=== PATIENT | female | born 1950 | race Caucasian/White ===

== ENCOUNTER 2021-10-13 13:28 | Inpatient (IN) ==
[2021-10-13] MEDS ORDERED: Albuterol 2.5 MG/3 ML NEBULIZER IH PRN (16:33)
[2021-10-13] MEDS: Ipratropium/Albuterol Neb 3 ML IH SCH ×2 (19:02→21:09)
[2021-10-14] MEDS: Ipratropium/Albuterol Neb 3 ML IH SCH (03:30)
[2021-10-14] MEDS: *HR* Enoxaparin 40 MG/0.4 ML SYRINGE SQ SCH (06:05)
[2021-10-14 07:51] LABS: Eosinophils % 0.2 %; Hematocrit 31.4 % (35.3-44.9); Immature Granulocytes % 0.5 % (0-4); Lymphocytes # 1.2 K/mcL (0.6-4.6); Lymphocytes % 28.5 %; Mean Corpuscular HGB Conc 31.8 g/dL (31.6-35.5); Mean Corpuscular Hemoglobin 29.3 pg (28.0-33.3); Mean Corpuscular Volume 92.1 fL (83.0-100.0); Mean Platelet Volume 11.4 fL (9.4-12.4); Monocytes # 0.4 K/mcL (0.0-1.3); Monocytes % 9.3 %; Platelet Count 177 K/mcL (140-400); Red Blood Count 3.41 M/mcL (3.82-4.97); Red Cell Distribution Width 12.3 % (11.5-14.5); Segmented Neutrophils % 61.5 %; White Blood Count 4.3 K/mcL (4.3-11.1)
[2021-10-14 07:52] LABS: Neutrophils # 2.6 K/mcL (1.6-8.9)
[2021-10-14] MEDS ORDERED: Furosemide 20 MG TABLET PO SCH (09:00)
[2021-10-14 09:11] LABS: BUN/Creatinine Ratio 20 (6-26); Blood Urea Nitrogen 19 mg/dL (8-23); Carbon Dioxide 40 mEq/L (23-29); Chloride 97 mEq/L (98-107); Glucose 121 mg/dL (70-105); Osmolality,Calculated 294 (280-300); Potassium 3.6 mEq/L (3.5-5.1); Sodium 140 mEq/L (136-145); eGFR For African Americans > 60 (> 60); eGFR For Non-African Americans 57 (> 60)
[2021-10-14] MEDS: Aspirin Enteric Coated 81 MG Tablet PO SCH (09:48)
[2021-10-14] MEDS: dexAMETHasone 4 MG TABLET PO SCH (09:48)
[2021-10-14] MEDS: Fluticasone Propionate Nasal 50 MCG/SPRAY BOTTLE NS SCH (09:49)
[2021-10-14] MEDS: Tiotropium 10 INH DOSE IH SCH (10:42)
[2021-10-14] MEDS: Budesonide/Formoterol 160/4.5 1 PUFF INH IH SCH (21:58)
[2021-10-15] MEDS: *HR* Enoxaparin 40 MG/0.4 ML SYRINGE SQ SCH (06:35)
[2021-10-15] MEDS: dexAMETHasone 4 MG TABLET PO SCH (08:23)
[2021-10-15] MEDS: acetaZOLAMIDE 250 MG TABLET PO SCH ×3 (08:23→22:15)
[2021-10-15] MEDS: Aspirin Enteric Coated 81 MG Tablet PO SCH (08:23)
[2021-10-15] MEDS: Furosemide 20 MG TABLET PO SCH (08:24)
[2021-10-15] MEDS: Fluticasone Propionate Nasal 50 MCG/SPRAY BOTTLE NS SCH (09:10)
[2021-10-15] MEDS: Tiotropium 10 INH DOSE IH SCH (09:46)
[2021-10-15] MEDS: Budesonide/Formoterol 160/4.5 1 PUFF INH IH SCH ×2 (09:46→23:37)
[2021-10-15] MEDS: Nystatin POWDER 30 GM BOTTLE TP SCH (21:58)
[2021-10-16] MEDS: *HR* Enoxaparin 40 MG/0.4 ML SYRINGE SQ SCH (06:19)
[2021-10-16] MEDS: Furosemide 20 MG TABLET PO SCH (08:16)
[2021-10-16] MEDS: Aspirin Enteric Coated 81 MG Tablet PO SCH (08:16)
[2021-10-16] MEDS: acetaZOLAMIDE 250 MG TABLET PO SCH ×2 (08:17→19:23)
[2021-10-16] MEDS: dexAMETHasone 4 MG TABLET PO SCH (08:17)
[2021-10-16] MEDS ORDERED: Dextrose Gel 15 GM/37.5 ML TUBE PO PRN ×2 (08:52)
[2021-10-16] MEDS ORDERED: D5% in Water 1,000 ML IVC PRN (08:52)
[2021-10-16] MEDS ORDERED: *HR* Dextrose 50 % in Water (Syg) 50 ML SYRINGE IVP PRN (08:52)
[2021-10-16 09:04] LABS: Hematocrit 37.5 % (35.3-44.9); Hemoglobin 11.6 g/dL (11.5-15.4); Mean Corpuscular HGB Conc 30.9 g/dL (31.6-35.5); Mean Corpuscular Hemoglobin 28.7 pg (28.0-33.3); Mean Corpuscular Volume 92.8 fL (83.0-100.0); Mean Platelet Volume 11.4 fL (9.4-12.4); Platelet Count 238 K/mcL (140-400); Red Blood Count 4.04 M/mcL (3.82-4.97); Red Cell Distribution Width 12.1 % (11.5-14.5); White Blood Count 6.6 K/mcL (4.3-11.1)
[2021-10-16 09:17] LABS: BUN/Creatinine Ratio 23 (6-26); Blood Urea Nitrogen 20 mg/dL (8-23); Calcium 9.5 mg/dL (8.6-10.3); Carbon Dioxide 34 mEq/L (23-29); Chloride 96 mEq/L (98-107); Glucose 185 mg/dL (70-105); Osmolality,Calculated 291 (280-300); Potassium 3.7 mEq/L (3.5-5.1); Sodium 137 mEq/L (136-145); eGFR For African Americans > 60 (> 60); eGFR For Non-African Americans > 60 (> 60)
[2021-10-16] MEDS: Budesonide/Formoterol 160/4.5 1 PUFF INH IH SCH ×2 (10:11→21:37)
[2021-10-16] MEDS: Tiotropium 10 INH DOSE IH SCH (10:12)
[2021-10-16] MEDS: Fluticasone Propionate Nasal 50 MCG/SPRAY BOTTLE NS SCH (11:42)
[2021-10-16] MEDS: Nystatin POWDER 30 GM BOTTLE TP SCH ×3 (11:42→19:24)
[2021-10-16] MEDS: Insulin LISPRO 300 UNITS/3 ML VIAL SUBQ SCH ×2 (13:57→17:07)
[2021-10-17] MEDS: *HR* Enoxaparin 40 MG/0.4 ML SYRINGE SQ SCH (05:24)
[2021-10-17] MEDS: dexAMETHasone 4 MG TABLET PO SCH (08:11)
[2021-10-17] MEDS: acetaZOLAMIDE 250 MG TABLET PO SCH ×2 (08:11→19:19)
[2021-10-17] MEDS: Aspirin Enteric Coated 81 MG Tablet PO SCH (08:11)
[2021-10-17] MEDS: Fluticasone Propionate Nasal 50 MCG/SPRAY BOTTLE NS SCH (08:11)
[2021-10-17] MEDS: Nystatin POWDER 30 GM BOTTLE TP SCH ×3 (08:11→19:19)
[2021-10-17] MEDS: Furosemide 20 MG TABLET PO SCH (08:11)
[2021-10-17] MEDS: Insulin LISPRO 300 UNITS/3 ML VIAL SUBQ SCH ×3 (08:12→17:22)
[2021-10-17] MEDS ORDERED: Menthol 1 EACH LOZENGE PO PRN (08:50)
[2021-10-17] MEDS: Budesonide/Formoterol 160/4.5 1 PUFF INH IH SCH ×2 (10:25→22:43)
[2021-10-17] MEDS: Tiotropium 10 INH DOSE IH SCH (10:25)
[2021-10-18] MEDS: *HR* Enoxaparin 40 MG/0.4 ML SYRINGE SQ SCH (05:13)
[2021-10-18] MEDS: Insulin LISPRO 300 UNITS/3 ML VIAL SUBQ SCH ×3 (07:19→16:49)
[2021-10-18] MEDS: dexAMETHasone 4 MG TABLET PO SCH (09:45)
[2021-10-18] MEDS: Aspirin Enteric Coated 81 MG Tablet PO SCH (09:45)
[2021-10-18] MEDS: Furosemide 20 MG TABLET PO SCH (09:45)
[2021-10-18] MEDS: Fluticasone Propionate Nasal 50 MCG/SPRAY BOTTLE NS SCH (09:46)
[2021-10-18] MEDS: Nystatin POWDER 30 GM BOTTLE TP SCH ×3 (10:09→19:35)
[2021-10-18] MEDS: Budesonide/Formoterol 160/4.5 1 PUFF INH IH SCH ×2 (10:22→21:41)
[2021-10-18 11:47] LABS: Hematocrit 36.7 % (35.3-44.9); Hemoglobin 11.4 g/dL (11.5-15.4); Mean Corpuscular HGB Conc 31.1 g/dL (31.6-35.5); Mean Corpuscular Hemoglobin 28.8 pg (28.0-33.3); Mean Corpuscular Volume 92.7 fL (83.0-100.0); Mean Platelet Volume 11.3 fL (9.4-12.4); Platelet Count 212 K/mcL (140-400); Red Blood Count 3.96 M/mcL (3.82-4.97); Red Cell Distribution Width 12.2 % (11.5-14.5); White Blood Count 6.4 K/mcL (4.3-11.1)
[2021-10-18 11:55] LABS: VBG Chloride 98 mEq/L (98-107)
[2021-10-18 12:30] LABS: BUN/Creatinine Ratio 30 (6-26); Blood Urea Nitrogen 27 mg/dL (8-23); Calcium 9.5 mg/dL (8.6-10.3); Carbon Dioxide 32 mEq/L (23-29); Glucose 162 mg/dL (70-105); eGFR For African Americans > 60 (> 60); eGFR For Non-African Americans > 60 (> 60)
[2021-10-18 14:50] LABS: Bilirubin,Urine Negative (Negative); Blood,Urine Negative (Negative); Clarity,Urine Clear (Clear); Color,Urine Yellow (Yellow); Glucose,Urine (UA) Normal (Normal); Ketones,Urine Negative (Negative); Leukocyte Esterase,Urine Negative (Negative); Nitrite,Urine Negative (Negative); Protein,Urine Negative (Neg-Trace); Specific Gravity,Urine 1.025 (1.010-1.025); Urobilinogen,Urine Normal (Normal)
[2021-10-19] MEDS: *HR* Enoxaparin 40 MG/0.4 ML SYRINGE SQ SCH (05:21)
[2021-10-19] MEDS: Fluticasone Propionate Nasal 50 MCG/SPRAY BOTTLE NS SCH (07:48)
[2021-10-19] MEDS: Nystatin POWDER 30 GM BOTTLE TP SCH ×3 (07:48→20:17)
[2021-10-19] MEDS: dexAMETHasone 4 MG TABLET PO SCH (07:48)
[2021-10-19] MEDS: Furosemide 20 MG TABLET PO SCH (07:49)
[2021-10-19] MEDS: Aspirin Enteric Coated 81 MG Tablet PO SCH (07:49)
[2021-10-19] MEDS: Insulin LISPRO 300 UNITS/3 ML VIAL SUBQ SCH ×3 (07:50→16:39)
[2021-10-19] MEDS: Budesonide/Formoterol 160/4.5 1 PUFF INH IH SCH ×2 (10:20→21:52)
[2021-10-20] MEDS: *HR* Enoxaparin 40 MG/0.4 ML SYRINGE SQ SCH (06:21)
[2021-10-20] MEDS: dexAMETHasone 4 MG TABLET PO SCH (08:40)
[2021-10-20] MEDS: Insulin LISPRO 300 UNITS/3 ML VIAL SUBQ SCH ×4 (08:40→22:22)
[2021-10-20] MEDS: Furosemide 20 MG TABLET PO SCH (08:40)
[2021-10-20] MEDS: Aspirin Enteric Coated 81 MG Tablet PO SCH (08:40)
[2021-10-20] MEDS: Fluticasone Propionate Nasal 50 MCG/SPRAY BOTTLE NS SCH (08:43)
[2021-10-20] MEDS: Nystatin POWDER 30 GM BOTTLE TP SCH ×3 (08:43→22:28)
[2021-10-20] MEDS: Budesonide/Formoterol 160/4.5 1 PUFF INH IH SCH ×2 (09:34→23:04)
[2021-10-21] MEDS: *HR* Enoxaparin 40 MG/0.4 ML SYRINGE SQ SCH (05:50)
[2021-10-21] MEDS: Aspirin Enteric Coated 81 MG Tablet PO SCH (07:59)
[2021-10-21] MEDS: Furosemide 20 MG TABLET PO SCH (07:59)
[2021-10-21] MEDS: dexAMETHasone 4 MG TABLET PO SCH (07:59)
[2021-10-21] MEDS: Insulin LISPRO 300 UNITS/3 ML VIAL SUBQ SCH ×4 (08:00→20:36)
[2021-10-21] MEDS: Nystatin POWDER 30 GM BOTTLE TP SCH ×3 (08:01→20:34)
[2021-10-21] MEDS: Fluticasone Propionate Nasal 50 MCG/SPRAY BOTTLE NS SCH (08:01)
[2021-10-21] MEDS: Budesonide/Formoterol 160/4.5 1 PUFF INH IH SCH ×2 (10:38→21:25)
[2021-10-22] MEDS: *HR* Enoxaparin 40 MG/0.4 ML SYRINGE SQ SCH (05:21)
[2021-10-22] MEDS: Furosemide 20 MG TABLET PO SCH (08:47)
[2021-10-22] MEDS: Fluticasone Propionate Nasal 50 MCG/SPRAY BOTTLE NS SCH (08:49)
[2021-10-22] MEDS: Aspirin Enteric Coated 81 MG Tablet PO SCH (08:49)
[2021-10-22] MEDS: Nystatin POWDER 30 GM BOTTLE TP SCH ×2 (08:50→16:48)
[2021-10-22] MEDS: Insulin LISPRO 300 UNITS/3 ML VIAL SUBQ SCH ×3 (08:54→16:48)
[2021-10-22] MEDS: Budesonide/Formoterol 160/4.5 1 PUFF INH IH SCH ×2 (10:05→22:03)
[2021-10-23] MEDS: Insulin LISPRO 300 UNITS/3 ML VIAL SUBQ SCH ×5 (01:07→21:42)
[2021-10-23] MEDS: Nystatin POWDER 30 GM BOTTLE TP SCH ×4 (01:07→22:02)
[2021-10-23] MEDS: *HR* Enoxaparin 40 MG/0.4 ML SYRINGE SQ SCH (05:38)
[2021-10-23 07:50] LABS: Hematocrit 32.6 % (35.3-44.9); Hemoglobin 10.3 g/dL (11.5-15.4); Mean Corpuscular HGB Conc 31.6 g/dL (31.6-35.5); Mean Corpuscular Volume 91.8 fL (83.0-100.0); Mean Platelet Volume 11.7 fL (9.4-12.4); Platelet Count 147 K/mcL (140-400); Red Blood Count 3.55 M/mcL (3.82-4.97); Red Cell Distribution Width 12.6 % (11.5-14.5); White Blood Count 6.9 K/mcL (4.3-11.1)
[2021-10-23] MEDS: Aspirin Enteric Coated 81 MG Tablet PO SCH (08:12)
[2021-10-23] MEDS: Furosemide 20 MG TABLET PO SCH (08:12)
[2021-10-23] MEDS: Fluticasone Propionate Nasal 50 MCG/SPRAY BOTTLE NS SCH (08:13)
[2021-10-23 08:14] LABS: BUN/Creatinine Ratio 37 (6-26); Blood Urea Nitrogen 29 mg/dL (8-23); Calcium 8.7 mg/dL (8.6-10.3); Carbon Dioxide 38 mEq/L (23-29); Chloride 102 mEq/L (98-107); Glucose 109 mg/dL (70-105); Osmolality,Calculated 298 (280-300); Potassium 3.6 mEq/L (3.5-5.1); Sodium 141 mEq/L (136-145); eGFR For African Americans > 60 (> 60); eGFR For Non-African Americans > 60 (> 60)
[2021-10-23] MEDS: Budesonide/Formoterol 160/4.5 1 PUFF INH IH SCH ×2 (09:55→21:39)
[2021-10-23] MEDS ORDERED: Acetaminophen 325 MG TABLET PO PRN (11:24)
[2021-10-23 12:13] LABS: Estimated Average Glucose 120 mg/dl; Hemoglobin A1C 5.8 %
[2021-10-24] MEDS: *HR* Enoxaparin 40 MG/0.4 ML SYRINGE SQ SCH (05:33)
[2021-10-24 06:54] VITALS: TEMP 98.3
[2021-10-24] MEDS: Insulin LISPRO 300 UNITS/3 ML VIAL SUBQ SCH ×3 (08:12→16:21)
[2021-10-24] MEDS: Budesonide/Formoterol 160/4.5 1 PUFF INH IH SCH ×2 (08:58→21:28)
[2021-10-24] MEDS: Furosemide 20 MG TABLET PO SCH (09:40)
[2021-10-24] MEDS: Aspirin Enteric Coated 81 MG Tablet PO SCH (09:40)
[2021-10-24] MEDS: Nystatin POWDER 30 GM BOTTLE TP SCH ×3 (09:42→21:09)
[2021-10-24] MEDS: Fluticasone Propionate Nasal 50 MCG/SPRAY BOTTLE NS SCH (09:42)
[2021-10-24 21:37] VITALS: RESP 18
[2021-10-25 07:05] VITALS: BP 125/55; PULSE 64
[2021-10-25] MEDS: *HR* Enoxaparin 40 MG/0.4 ML SYRINGE SQ SCH (08:18)
[2021-10-25] MEDS: Furosemide 20 MG TABLET PO SCH (08:18)
[2021-10-25] MEDS: Aspirin Enteric Coated 81 MG Tablet PO SCH (08:18)
[2021-10-25] MEDS: Fluticasone Propionate Nasal 50 MCG/SPRAY BOTTLE NS SCH (08:20)
[2021-10-25] MEDS: Nystatin POWDER 30 GM BOTTLE TP SCH (08:20)
[2021-10-25] MEDS: Budesonide/Formoterol 160/4.5 1 PUFF INH IH SCH (10:50)
[2021-10-25 10:52] VITALS: O2SAT 99
[2021-10-25] MEDS ORDERED: FLU Vac QV 21-22 (6Month+)/PF 0.5 ML SYRINGE IM ONE (11:16)
== END 2021-10-25 16:10 | disposition home health service (06) | DRG 177 ==
LOC: INPPIK 18:25
PROVIDERS: ADMIT Family Medicine; ATTEND Family Medicine